=== PATIENT | female | born 1990 | race Native Hawaiian/Other Pacific Islander ===

== ENCOUNTER → 2016-03-21 | Outpatient (CLI) | payer OTHER ==
--- NOTE | 2016-03-21 11:24 | US ---
EXAMINATION TYPE: US gallbladder DATE OF EXAM: 03/21/2016 7:19 AM COMPARISON: NONE CLINICAL HISTORY: epigastric pain before and after meals, vomiting EXAM MEASUREMENTS: Liver Length: 17.7cm Gallbladder Wall: 0.2cm CBD: 0.6cm Right Kidney: 12.4 x 6.6 x 4.6cm ANATOMY: The pancreas is not well seen. The liver shows a coarse echotexture and is poorly penetrated by the ultrasound beam. Hypoechoic area adjacent to the gallbladder fossa likely represents focal fa tty sparing. TECHNOLOGIST IMPRESSION: Pancreas: hyperechoic and limitedly seen due to overlying bowel gas Liver: fatty as is hyperechoic to right renal cortex; area of focal sparing is noted near gallbladde r Gallbladder: wnl Evidence for sonographic Roa's sign: no CBD: size at upper limits of normal and noted tapering near pancreas Right Kidney: no hydro or masses seen IMPRESSION: Common bile duct is borderline abnormally increased in size. Consider gastroenterology co nsult. Probable fatty infiltration of the liver. Exam is limited.
== END | disposition home or self-care (01) ==
LOC: RADUSWWP 06:53
PROVIDERS: ATTEND Internal Medicine
DX: K83.8 Other specified diseases of biliary tract (principal); R10.84 Generalized abdominal pain
CPT/HCPCS: 76705

== ENCOUNTER 2017-04-01 15:57 | Emergency (ER) | payer OTHER ==
--- NOTE | 2017-04-01 16:20 | ED ---
General Adult HPI - General Chief complaint: Urogenital Stated complaint: kidney pain Time Seen by Provider: 04/01/17 16:15 Source: patient, RN notes reviewed Mode of arrival: ambulatory - History of Present Illness Initial comments: Patient 26-year-old female who presents emergency room today with a chief complaint of increased dysuria. Patient has some right-sided back pain. Patient states his symptoms started yesterday. She admits to pain in her lower abdomen just prior to voiding. Patient states that is had some pain in the lower back on the right side. She denies any other complaints associated symptoms. States never had some symptoms in the past. Patient denies any recent fever, chills, shortness of breath, chest pain, back pain, nausea or vomiting, numbness or tingling, constipation or diarrhea, headaches or visual changes, or any other complaints. - Related Data Home Medications Medication Instructions Recorded Confirmed Norgestimate-Ethinyl Estradiol 1 tab PO DAILY 09/15/15 04/01/17 [Sprintec 28 Day Tablet] ALPRAZolam [Xanax] 0.25 mg PO DAILY PRN 04/01/17 04/01/17 Previous Rx's Medication Instructions Recorded Phenazopyridine [Pyridium] 100 mg PO TID 3 Days day 04/01/17 Allergies Allergy/AdvReac Type Severity Reaction Status Date / Time aspirin AdvReac Nausea & Verified 04/01/17 16:26 Vomiting Review of Systems ROS Statement: Those systems with pertinent positive or pertinent negative responses have been documented in the HPI. ROS Other: All systems not noted in ROS Statement are negative. Past Medical History Past Medical History: No Reported History History of Any Multi-Drug Resistant Organisms: None Reported Past Surgical History: No Surgical Hx Reported Past Psychological History: No Psychological Hx Reported Smoking Status: Current every day smoker Past Alcohol Use History: None Reported Past Drug Use History: None Reported General Exam - General Exam Comments Initial Comments: General: The patient is awake and alert, in no distress, and does not appear acutely ill. Eye: Pupils are equal, round and reactive to light, extra-ocular movements are intact. No nystagmus. There is normal conjunctiva bilaterally. No signs of icterus. Ears, nose, mouth and throat: There are moist mucous membranes and no oral lesions. Neck: The neck is supple, there is no tenderness or JVD. Cardiovascular: There is a regular rate and rhythm. No murmur, rub or gallop is appreciated. Respiratory: Lungs are clear to auscultation, respirations are non-labored, breath sounds are equal. No wheezes, stridor, rales, or rhonchi. Gastrointestinal: Soft, non-distended, non-tender abdomen without masses or organomegaly noted. There is no rebound or guarding present. No CVA tenderness. Bowel sounds are unremarkable. Musculoskeletal: Normal ROM, no tenderness. Strength 5/5. Sensation intact. Pulses equal bilaterally 2+. Neurological: A&O x 3. CN II-XII intact, There are no obvious motor or sensory deficits. Coordination appears grossly intact. Speech is normal. Skin: Skin is warm and dry and no rashes or lesions are noted. Psychiatric: Cooperative, appropriate mood & affect, normal judgment. Course Vital Signs 04/01/17 16:04 Temperature 98.1 F Pulse Rate 100 Respiratory 18 Rate Blood Pressure 165/96 O2 Sat by Pulse 98 Oximetry Medical Decision Making - Medical Decision Making Patient's labs been reviewed and does show elevated blood glucose at 214. Does have 4+ glucose and the urine. Was given a liter bolus here in emergency room. Patient is feeling better will be discharged home and advised follow-up the family doctor tomorrow. Advised return here to the emergency room symptoms increase or worsen or for any other concerns. - Lab Data Result diagrams: 04/01/17 17:55 04/01/17 17:55 Lab Results 04/01/17 04/01/17 04/01/17 Range/Units 16:38 16:38 17:55 WBC 10.2 (3.8-10.6) k/uL RBC 4.85 (3.80-5.40) m/uL Hgb 15.3 (11.4-16.0) gm/dL Hct 46.0 (34.0-46.0) % MCV 94.9 (80.0-100.0) fL MCH 31.5 (25.0-35.0) pg MCHC 33.2 (31.0-37.0) g/dL RDW 12.5 (11.5-15.5) % Plt Count 215 (150-450) k/uL Neutrophils % 64 % Lymphocytes % 27 % Monocytes % 4 % Eosinophils % 4 % Basophils % 1 % Neutrophils # 6.5 (1.3-7.7) k/uL Lymphocytes # 2.8 (1.0-4.8) k/uL Monocytes # 0.4 (0-1.0) k/uL Eosinophils # 0.4 (0-0.7) k/uL Basophils # 0.1 (0-0.2) k/uL Sodium (137-145) mmol/L Potassium (3.5-5.1) mmol/L Chloride (98-107) mmol/L Carbon Dioxide (22-30) mmol/L Anion Gap mmol/L BUN (7-17) mg/dL Creatinine (0.52-1.04) mg/dL Est GFR (MDRD) Af Amer (>60 ml/min/1.73 sqM) Est GFR (MDRD) Non-Af (>60 ml/min/1.73 sqM) Glucose (74-99) mg/dL Calcium (8.4-10.2) mg/dL Total Bilirubin (0.2-1.3) mg/dL AST (14-36) U/L ALT (9-52) U/L Alkaline Phosphatase (38-126) U/L Total Protein (6.3-8.2) g/dL Albumin (3.5-5.0) g/dL Amylase (30-110) U/L Lipase (23-300) U/L Urine Color Yellow Urine Appearance Clear (Clear) Urine pH 5.5 (5.0-8.0) Ur Specific [place] 1.022 (1.001-1.035) Urine Protein Negative (Negative) Urine Glucose (UA) 4+ H (Negative) Urine Ketones 2+ H (Negative) Urine Blood Negative (Negative) Urine Nitrite Negative (Negative) Urine Bilirubin Negative (Negative) Urine Urobilinogen <2.0 (<2.0) mg/dL Ur Leukocyte Esterase Negative (Negative) Urine HCG, Qual Not Detected (Not Detectd) 04/01/17 Range/Units 17:55 WBC (3.8-10.6) k/uL RBC (3.80-5.40) m/uL Hgb (11.4-16.0) gm/dL Hct (34.0-46.0) % MCV (80.0-100.0) fL MCH (25.0-35.0) pg MCHC (31.0-37.0) g/dL RDW (11.5-15.5) % Plt Count (150-450) k/uL Neutrophils % % Lymphocytes % % Monocytes % % Eosinophils % % Basophils % % Neutrophils # (1.3-7.7) k/uL Lymphocytes # (1.0-4.8) k/uL Monocytes # (0-1.0) k/uL Eosinophils # (0-0.7) k/uL Basophils # (0-0.2) k/uL Sodium 137 (137-145) mmol/L Potassium 5.3 H (3.5-5.1) mmol/L Chloride 107 (98-107) mmol/L Carbon Dioxide 21 L (22-30) mmol/L Anion Gap 9 mmol/L BUN 13 (7-17) mg/dL Creatinine 0.58 (0.52-1.04) mg/dL Est GFR (MDRD) Af Amer >60 (>60 ml/min/1.73 sqM) Est GFR (MDRD) Non-Af >60 (>60 ml/min/1.73 sqM) Glucose 214 H (74-99) mg/dL Calcium 9.7 (8.4-10.2) mg/dL Total Bilirubin 0.4 (0.2-1.3) mg/dL AST 42 H (14-36) U/L ALT 48 (9-52) U/L Alkaline Phosphatase 98 (38-126) U/L Total Protein 7.3 (6.3-8.2) g/dL Albumin 4.1 (3.5-5.0) g/dL Amylase 57 (30-110) U/L Lipase 110 (23-300) U/L Urine Color Urine Appearance (Clear) Urine pH (5.0-8.0) Ur Specific [place] (1.001-1.035) Urine Protein (Negative) Urine Glucose (UA) (Negative) Urine Ketones (Negative) Urine Blood (Negative) Urine Nitrite (Negative) Urine Bilirubin (Negative) Urine Urobilinogen (<2.0) mg/dL Ur Leukocyte Esterase (Negative) Urine HCG, Qual (Not Detectd) Disposition Clinical Impression: Blood glucose elevated, Dysuria Disposition: HOME SELF-CARE Condition: Good Instructions: Dysuria (ED) Additional Instructions: Please use medication as discussed. Please follow-up with family doctor tomorrow. Please return to emergency room if the symptoms increase or worsen or for any other concerns. Prescriptions: Phenazopyridine [Pyridium] 100 mg PO TID 3 Days day Referrals: Hannah Jj MD [Primary Care Provider] - 1-2 days Time of Disposition: 18:38
[2017-04-01 16:46] LABS: Appearance,Urine Clear (Clear); Bilirubin,Urine Negative (Negative); Blood,Urine Negative (Negative); Color,Urine Yellow; Glucose,Urine (UA) 4+ (Negative); Leukocyte Esterase,Urine Negative (Negative); Nitrite,Urine Negative (Negative); PH, Urine 5.5 (5.0-8.0); Protein,Urine Negative (Negative); Specific Gravity,Urine 1.022 (1.001-1.035); Urobilinogen,Urine <2.0 mg/dL (<2.0)
[2017-04-01 17:26] LABS: Ketones,Urine 2+ (Negative)
[2017-04-01 18:08] LABS: Basophils # (A) 0.1 k/uL (0-0.2); Basophils % (A) 1 %; Eosinophils # (A) 0.4 k/uL (0-0.7); Eosinophils % (A) 4 %; HGB 15.3 gm/dL (11.4-16.0); Lymphocytes # (A) 2.8 k/uL (1.0-4.8); Lymphocytes % (A) 27 %; MCH 31.5 pg (25.0-35.0); MCHC 33.2 g/dL (31.0-37.0); MCV 94.9 fL (80.0-100.0); Mean Platelet Volume 7.9; Monocytes # (A) 0.4 k/uL (0-1.0); Monocytes % (A) 4 %; Neutrophils # (A) 6.5 k/uL (1.3-7.7); Neutrophils % (A) 64 %; Platelet Count 215 k/uL (150-450); RBC 4.85 m/uL (3.80-5.40); RDW 12.5 % (11.5-15.5); WBC 10.2 k/uL (3.8-10.6)
[2017-04-01 18:17] LABS: ALT 48 U/L (9-52); AST 42 U/L (14-36); Albumin 4.1 g/dL (3.5-5.0); Alkaline Phosphatase 98 U/L (38-126); Amylase 57 U/L (30-110); Anion Gap 9 mmol/L; Blood Urea Nitrogen 13 mg/dL (7-17); Calcium 9.7 mg/dL (8.4-10.2); Carbon Dioxide 21 mmol/L (22-30); Chloride 107 mmol/L (98-107); Glucose 214 mg/dL (74-99); Lipase 110 U/L (23-300); Potassium 5.3 mmol/L (3.5-5.1); Sodium 137 mmol/L (137-145); Total Bilirubin 0.4 mg/dL (0.2-1.3); Total Protein 7.3 g/dL (6.3-8.2)
--- NOTE | 2017-04-01 18:19 | XR ---
EXAMINATION TYPE: XR KUB DATE OF EXAM: 04/01/2017 6:12 PM CLINICAL HISTORY: Right upper abdominal pain. TECHNIQUE: Upright images of the abdomen is obtained. COMPARISON: None. FINDINGS: Scattered gas is seen in non-distended small bowel loops. Gas and fecal material is seen in non-distended colon. There is no visceromegaly, pneumoperitoneum, or abnormal calcification apprecia ena. The lung bases are clear and the osseous structures are intact. Mild S-shaped scoliotic curvatur e of the thoracolumbar spine may be partially positional in nature. IMPRESSION: Nonobstructive bowel gas pattern.
[2017-04-01] MEDS ORDERED: SODIUM CHLORIDE 0.9% 1,000 ML IV STA (18:38)
[2017-04-01 19:15] VITALS: BP 161/90; PULSE 81; RESP 17; TEMP 97.7
== END 2017-04-01 20:03 | disposition home or self-care (01) ==
LOC: EC 15:57
DX: R30.0 Dysuria (principal); R73.9 Hyperglycemia, unspecified; F17.200 Nicotine dependence, unspecified, uncomplicated; Z79.3 Long term (current) use of hormonal contraceptives; Z88.6 Allergy status to analgesic agent
CPT/HCPCS: 36415; 74018; 80053; 81003; 81025; 82150; 83690; 85025; 87086; 96360; 99283

== ENCOUNTER → 2017-04-13 | Outpatient (CLI) | payer OTHER ==
--- NOTE | 2017-04-13 08:02 | US ---
EXAMINATION TYPE: US abdomen complete DATE OF EXAM: 04/13/2017 COMPARISON: NONE CLINICAL HISTORY: R10.11 RUQ Pain, R94.5 Elevated Liver Tests. EXAM MEASUREMENTS: Liver Length: 0.2 cm Gallbladder Wall: 0.1 cm CBD: 0.2 cm Spleen: 9.5 cm Right Kidney: 11.5 x 4.9 x 5.3 cm Left Kidney: 11.2 x 4.8 x 5.2 cm Pancreas: Obscured by bowel gas Liver: Increased attenuation, decreased visualization of vessels suggestive of fatty infiltrate, samantha e probable focal fatty sparing adjacent to GB Gallbladder: wnl Evidence for sonographic Roa's sign: no CBD: wnl Spleen: wnl Right Kidney: wnl Left Kidney: wnl Upper IVC: wnl Abd Aorta: wnl The visualized liver is heterogeneously hyperechoic. Evaluation for masses is suboptimal due to the heterogeneity. The intrahepatic portion of the IVC and visualized abdominal aorta are within normal l imits. There is no evidence of cholelithiasis. Common bile duct is unremarkable. The visualized po rtions of the pancreas are homogenous. The spleen is unremarkable. Kidneys are symmetric and free o f hydronephrosis. No renal lesions are seen. IMPRESSION: Heterogeneous hyperechoic appearance to liver favors product of diffuse fatty infiltratio n, product of underlying hepatocellular disease is not excluded. Need to further investigate by imagi ng guided random biopsy should be based on clinical correlation.
== END | disposition home or self-care (01) ==
LOC: RADUSWWP 06:55
PROVIDERS: ATTEND Internal Medicine
DX: R10.11 Right upper quadrant pain (principal); R94.5 Abnormal results of liver function studies
CPT/HCPCS: 76700

== ENCOUNTER 2018-04-06 18:09 | Emergency (ER) | payer OTHER ==
[2018-04-06 18:16] VITALS: TEMP 98.6
--- NOTE | 2018-04-06 18:37 | ED ---
Abdominal Pain HPI - General Chief Complaint: Abdominal Pain Stated Complaint: Cramping Time Seen by Provider: 04/06/18 18:25 Source: patient, RN notes reviewed, old records reviewed Mode of arrival: ambulatory Limitations: no limitations - History of Present Illness Initial Comments: Patient is a 27-year-old female, . She reports that she found she was yesterday from urine test. Her last menstrual period was March 07. She presents emergency department today with lower abdominal cramping. 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 She denies any changes in urination or bowel habits. She denies nausea or vomiting. Patient states that she has diffuse lower cramping does not report radiation towards the sides. She does complain of some cramps in her lower back as well. Patient denies any vaginal discharge or vaginal bleeding. - Related Data Home Medications Medication Instructions Recorded Confirmed Norgestimate-Ethinyl Estradiol 1 tab PO DAILY 09/15/15 04/01/17 [Sprintec 28 Day Tablet] ALPRAZolam [Xanax] 0.25 mg PO DAILY PRN 04/01/17 04/01/17 Previous Rx's Medication Instructions Recorded Phenazopyridine [Pyridium] 100 mg PO TID 3 Days day 04/01/17 Allergies Allergy/AdvReac Type Severity Reaction Status Date / Time aspirin AdvReac Nausea & Verified 04/06/18 18:13 Vomiting Review of Systems ROS Statement: Those systems with pertinent positive or pertinent negative responses have been documented in the HPI. ROS Other: All systems not noted in ROS Statement are negative. Past Medical History Past Medical History: Diabetes Mellitus History of Any Multi-Drug Resistant Organisms: None Reported Past Surgical History: No Surgical Hx Reported Past Psychological History: Anxiety, Depression Smoking Status: Current every day smoker Past Alcohol Use History: None Reported Past Drug Use History: None Reported General Exam - General Exam Comments Initial Comments: (27-year-old female. Alert and oriented 3. No acute distress. Limitations: no limitations General appearance: alert, in no apparent distress Head exam: Present: atraumatic, normocephalic, normal inspection Eye exam: Present: normal appearance, PERRL, EOMI. Absent: scleral icterus, conjunctival injection, periorbital swelling ENT exam: Present: normal exam, mucous membranes moist Neck exam: Present: normal inspection. Absent: tenderness, meningismus, lymphadenopathy Respiratory exam: Present: normal lung sounds bilaterally. Absent: respiratory distress, wheezes, rales, rhonchi, stridor Cardiovascular Exam: Present: regular rate, normal rhythm, normal heart sounds. Absent: systolic murmur, diastolic murmur, rubs, gallop, clicks GI/Abdominal exam: Present: soft, tenderness (suprapubic or abdominal tenderness ), normal bowel sounds. Absent: distended, guarding, rebound, rigid External exam: Present: normal external exam Speculum exam: Present: normal speculum exam. Absent: cervical discharge, vaginal bleeding, foreign body By manual exam: Present: normal by manual exam. Absent: cervical motion tenderness, adnexal tenderness Extremities exam: Present: normal inspection, full ROM, normal capillary refill. Absent: tenderness, pedal edema, joint swelling, calf tenderness Back exam: Present: normal inspection Neurological exam: Present: alert, oriented X3, CN II-XII intact Course Vital Signs 04/06/18 04/06/18 18:13 19:26 Temperature 98.6 F Pulse Rate 115 H 76 Respiratory 18 16 Rate Blood Pressure 133/67 130/85 O2 Sat by Pulse 97 100 Oximetry Medical Decision Making - Medical Decision Making 27-year-old female presents emergency Department today with complaints of lower abdominal cramping. Patient states she found she was yesterday. Her hCG level of the sinus 243. O+ blood type. Ultrasound was completed and no evidence of ectopic or intrauterine . Discussed this with be normal and she is very early . Her last menstrual periods March 07. She has no GASOLINE DRAGLINE OPERATOR at this time. I discussed case with Dr. Wagner Davis discussed again started Juan. We will repeat the patient's hCG in 2 days and have her follow-up with Dr. Martinez. discussed strict return parameters and all questions were answered. - Lab Data Result diagrams: 04/06/18 18:35 04/06/18 18:35 Lab Results 04/06/18 04/06/18 04/06/18 Range/Units 18:35 18:35 18:35 WBC 11.2 H (3.8-10.6) k/uL RBC 5.19 (3.80-5.40) m/uL Hgb 15.6 (11.4-16.0) gm/dL Hct 48.5 H (34.0-46.0) % MCV 93.5 (80.0-100.0) fL MCH 30.0 (25.0-35.0) pg MCHC 32.1 (31.0-37.0) g/dL RDW 13.0 (11.5-15.5) % Plt Count 299 (150-450) k/uL Neutrophils % 67 % Lymphocytes % 24 % Monocytes % 4 % Eosinophils % 3 % Basophils % 1 % Neutrophils # 7.5 (1.3-7.7) k/uL Lymphocytes # 2.7 (1.0-4.8) k/uL Monocytes # 0.4 (0-1.0) k/uL Eosinophils # 0.3 (0-0.7) k/uL Basophils # 0.1 (0-0.2) k/uL PT (9.0-12.0) sec INR (<1.2) APTT (22.0-30.0) sec Sodium 139 (137-145) mmol/L Potassium 4.1 (3.5-5.1) mmol/L Chloride 107 (98-107) mmol/L Carbon Dioxide 22 (22-30) mmol/L Anion Gap 10 mmol/L BUN 11 (7-17) mg/dL Creatinine 0.59 (0.52-1.04) mg/dL Est GFR (CKD-EPI)AfAm >90 (>60 ml/min/1.73 sqM) Est GFR (CKD-EPI)NonAf >90 (>60 ml/min/1.73 sqM) Glucose 157 H (74-99) mg/dL Calcium 9.8 (8.4-10.2) mg/dL Total Bilirubin 0.5 (0.2-1.3) mg/dL AST 22 (14-36) U/L ALT 40 (9-52) U/L Alkaline Phosphatase 99 (38-126) U/L Total Protein 8.1 (6.3-8.2) g/dL Albumin 4.5 (3.5-5.0) g/dL HCG, Quant 234.9 mIU/mL Urine Color Urine Appearance (Clear) Urine pH (5.0-8.0) Ur Specific [place] (1.001-1.035) Urine Protein (Negative) Urine Glucose (UA) (Negative) Urine Ketones (Negative) Urine Blood (Negative) Urine Nitrite (Negative) Urine Bilirubin (Negative) Urine Urobilinogen (<2.0) mg/dL Ur Leukocyte Esterase (Negative) Urine HCG, Qual (Not Detectd) Blood Type O Positive Blood Type Recheck No 04/06/18 04/06/18 04/06/18 Range/Units 18:35 18:50 18:50 WBC (3.8-10.6) k/uL RBC (3.80-5.40) m/uL Hgb (11.4-16.0) gm/dL Hct (34.0-46.0) % MCV (80.0-100.0) fL MCH (25.0-35.0) pg MCHC (31.0-37.0) g/dL RDW (11.5-15.5) % Plt Count (150-450) k/uL Neutrophils % % Lymphocytes % % Monocytes % % Eosinophils % % Basophils % % Neutrophils # (1.3-7.7) k/uL Lymphocytes # (1.0-4.8) k/uL Monocytes # (0-1.0) k/uL Eosinophils # (0-0.7) k/uL Basophils # (0-0.2) k/uL PT 9.6 (9.0-12.0) sec INR 0.9 (<1.2) APTT 24.5 (22.0-30.0) sec Sodium (137-145) mmol/L Potassium (3.5-5.1) mmol/L Chloride (98-107) mmol/L Carbon Dioxide (22-30) mmol/L Anion Gap mmol/L BUN (7-17) mg/dL Creatinine (0.52-1.04) mg/dL Est GFR (CKD-EPI)AfAm (>60 ml/min/1.73 sqM) Est GFR (CKD-EPI)NonAf (>60 ml/min/1.73 sqM) Glucose (74-99) mg/dL Calcium (8.4-10.2) mg/dL Total Bilirubin (0.2-1.3) mg/dL AST (14-36) U/L ALT (9-52) U/L Alkaline Phosphatase (38-126) U/L Total Protein (6.3-8.2) g/dL Albumin (3.5-5.0) g/dL HCG, Quant mIU/mL Urine Color Yellow Urine Appearance Clear (Clear) Urine pH 5.5 (5.0-8.0) Ur Specific [place] 1.021 (1.001-1.035) Urine Protein Negative (Negative) Urine Glucose (UA) Negative (Negative) Urine Ketones Trace H (Negative) Urine Blood Negative (Negative) Urine Nitrite Negative (Negative) Urine Bilirubin Negative (Negative) Urine Urobilinogen 3.0 (<2.0) mg/dL Ur Leukocyte Esterase Negative (Negative) Urine HCG, Qual Detected (Not Detectd) Blood Type Blood Type Recheck - Radiology Data Radiology results: report reviewed Normal sonographic evaluation of the uterus and ovaries with no evidence of intrauterine . Correlate with serum hCG for ectopic . Disposition Clinical Impression: Abdominal pain affecting , Early stage of Disposition: HOME SELF-CARE Condition: Good Instructions: Abdominal Pain in (ED) Additional Instructions: Patient arrives to follow-up with primary care physician and OBGYN. Repeat hcg in 2 days. Return to emergency department if any alarming signs or symptoms occur. Is patient prescribed a controlled substance at d/c from ED?: No Referrals: Hannah Jj MD [Primary Care Provider] - 1-2 days Time of Disposition: 20:21
[2018-04-06 18:59] LABS: Basophils # (A) 0.1 k/uL (0-0.2); Basophils % (A) 1 %; Eosinophils # (A) 0.3 k/uL (0-0.7); Eosinophils % (A) 3 %; HCT 48.5 % (34.0-46.0); HGB 15.6 gm/dL (11.4-16.0); Lymphocytes # (A) 2.7 k/uL (1.0-4.8); Lymphocytes % (A) 24 %; MCHC 32.1 g/dL (31.0-37.0); MCV 93.5 fL (80.0-100.0); Mean Platelet Volume 7.2; Monocytes # (A) 0.4 k/uL (0-1.0); Monocytes % (A) 4 %; Neutrophils # (A) 7.5 k/uL (1.3-7.7); Neutrophils % (A) 67 %; Platelet Count 299 k/uL (150-450); RBC 5.19 m/uL (3.80-5.40); WBC 11.2 k/uL (3.8-10.6)
[2018-04-06 19:11] LABS: INR 0.9 (<1.2); Partial Thromboplastin Time 24.5 sec (22.0-30.0); Prothrombin Time 9.6 sec (9.0-12.0)
[2018-04-06 19:13] LABS: ALT 40 U/L (9-52); AST 22 U/L (14-36); Albumin 4.5 g/dL (3.5-5.0); Alkaline Phosphatase 99 U/L (38-126); Anion Gap 10 mmol/L; Blood Urea Nitrogen 11 mg/dL (7-17); Calcium 9.8 mg/dL (8.4-10.2); Carbon Dioxide 22 mmol/L (22-30); Chloride 107 mmol/L (98-107); Glucose 157 mg/dL (74-99); Potassium 4.1 mmol/L (3.5-5.1); Sodium 139 mmol/L (137-145); Total Bilirubin 0.5 mg/dL (0.2-1.3); Total Protein 8.1 g/dL (6.3-8.2)
[2018-04-06 19:13] LABS: Appearance,Urine Clear (Clear); Bilirubin,Urine Negative (Negative); Blood,Urine Negative (Negative); Color,Urine Yellow; Glucose,Urine (UA) Negative (Negative); Ketones,Urine Trace (Negative); Leukocyte Esterase,Urine Negative (Negative); Nitrite,Urine Negative (Negative); PH, Urine 5.5 (5.0-8.0); Protein,Urine Negative (Negative); Specific Gravity,Urine 1.021 (1.001-1.035)
[2018-04-06 19:27] VITALS: BP 130/85; PULSE 76; RESP 16
[2018-04-06 19:28] LABS: HCG,Quantitative Serum 234.9 mIU/mL
--- NOTE | 2018-04-06 19:31 | US ---
EXAMINATION TYPE: Transabdominal DATE OF EXAM: 06/19/17 COMPARISON: NONE CLINICAL HISTORY: Pain. Pelvic pain x 1 day, 1 EXAM PERFORMED: Transabdominal (TA) EXAM MEASUREMENTS: GESTATIONAL AGE / DATING Physician Established: Not established yet Dates by LMP: (4 weeks/2 days) EDC: 12/12/2018 Dates by First Scan: This is 1st scan Dates by Current Scan for: No IUP seen at this time MATERNAL ANATOMY Uterus: 8.6 x 4.6 x 5.5cm, anteverted Right Ovary: 3.3 x 1.6 x 1.9cm Left Ovary: 2.9 x 1.7 x 1.9cm Post CDS / Adnexa: wnl Presence of free fluid: no GESTATION / SURVEY IUP: No IUP seen at this time Date of LMP: 03/07/2018 Beta HcG (if available): Not available at time of exam. IMPRESSION: Normal sonographic evaluation of the uterus and ovaries with no evidence of intrauterine . C orrelate with serum beta hCG for possible ectopic .
== END 2018-04-06 20:33 | disposition home or self-care (01) ==
LOC: EC 18:09
DX: O99.89 Other specified diseases and conditions complicating pregnancy, childbirth and the puerperium (principal); R10.2 Pelvic and perineal pain; R25.2 Cramp and spasm; Z32.01 Encounter for pregnancy test, result positive; Z67.40 Type O blood, Rh positive; O99.331 Smoking (tobacco) complicating pregnancy, first trimester; F17.200 Nicotine dependence, unspecified, uncomplicated; Z88.6 Allergy status to analgesic agent; Z79.3 Long term (current) use of hormonal contraceptives; Z3A.01 Less than 8 weeks gestation of pregnancy
CPT/HCPCS: 36415; 76801; 80053; 81003; 81025; 84702; 85025; 85610; 85730; 86900; 86901; 87070; 87205; 87491; 87591; 87808; 99284